=== PATIENT | female | born 1945 | race Hispanic/Latino ===

== ENCOUNTER 2018-06-27 09:33 | Emergency (ER) | payer MEDICARE, OTHER ==
[~2018-06-27] VITALS: Ht 149.9 cm; Wt 56.7 kg
[~2018-06-27 09:33] MED LIST: ESTRACE1 MG PO; LOSARTAN POTASS50 MG PO; SIMVASTATIN40 MG PO; SYNTHROID75 MCG PO; TRIAMCINOLONE A15 G3 TP; VALACYCLOVIR500 MG PO
[2018-06-27 10:50] LABS: BILIRUBIN,URINE NEGATIVE (NEGATIVE); CLARITY,URINE CLEAR (CLEAR); COLOR,URINE YELLOW (YELLOW); KETONES,URINE NEGATIVE (NEGATIVE); LEUKOCYTE ESTERASE ,URINE NEGATIVE (NEGATIVE); NITRITE,URINE POSITIVE (NEGATIVE); PROTEIN,URINE DIPSTICK 1+ (NEGATIVE); URINE UROBILINOGEN 1 mg/dL (0.2 - 1)
[2018-06-27 11:00] LABS: RBC,URINE 0-5 /HPF (0-5); WBC,URINE (MAN) 0-5 /HPF (0-5)
[2018-06-27 11:01] LABS: BACTERIA,URINE MODERATE /HPF; EPITHELIAL CELLS,URINE MODERATE /LPF
--- NOTE | 2018-06-27 12:37 | NUR ---
bladder scan completed after patient went to rest room and voided. result was 0ml after two seperate attempts. Arron [employer]ATOR in room when scan completed
[2018-06-27] MEDS ORDERED: DETROL LA4 MG PO (12:56)
[2018-06-27] MEDS ORDERED: CEFDINIR300 MG PO (12:59)
== END 2018-06-27 13:23 | disposition home or self-care (01) ==
LOC: ER 09:33
DX: R30.0 Dysuria (principal); N30.90 Cystitis, unspecified without hematuria; I10 Essential (primary) hypertension; E07.9 Disorder of thyroid, unspecified; K21.9 Gastro-esophageal reflux disease without esophagitis
CPT/HCPCS: 81001; 99284

== ENCOUNTER 2022-10-25 10:24 | Emergency (ER) | payer MEDICARE ==
[~2022-10-25] VITALS: Ht 149.9 cm; Wt 56.7 kg
[~2022-10-25 10:24] MED LIST changes: +CEFDINIR300 MG PO; +DETROL LA4 MG PO
[2022-10-25 11:29] VITALS: O2SAT 100
[2022-10-25] MEDS ORDERED: SODIUM CHLORIDE 0.9% 500ML 500 ML IV ONE (12:00)
[2022-10-25 12:51] LABS: BASOPHILS % 0.4 % (0.0-1.0); EOSINOPHILS # (AUTO) 0.1 (0.0-0.4); EOSINOPHILS % 1.2 % (0.0-6.0); HEMATOCRIT 41.4 % (34.2-44.1); HEMOGLOBIN 14.1 g/dL (12.0-16.0); LYMPHOCYTES # (AUTO) 3.5 (1.0-3.2); LYMPHOCYTES % 40.5 % (18.0-39.1); MEAN CORPUSCULAR HEMOGLOBIN 31.4 pg (28-32); MEAN CORPUSCULAR HGB CONC 34.1 g/dL (31-35); MEAN CORPUSCULAR VOLUME 92.2 fL (81-99); MONOCYTES # (AUTO) 0.7 (0.2-0.8); MONOCYTES % 7.7 % (4.4-11.3); NEUTROPHILS # (AUTO) 4.3 (2.1-6.9); PLATELET COUNT 337 x10e3/uL (140-360); RED BLOOD COUNT 4.49 x10e6/uL (3.6-5.1); RED CELL DISTRIBUTION WIDTH 12.5 % (11.7-14.4)
[2022-10-25 13:13] LABS: COLOR,URINE YELLOW (YELLOW)
[2022-10-25 13:14] LABS: ALBUMIN 4.2 g/dL (3.5-5.0); ALBUMIN/GLOBULIN RATIO 1.3 (0.8-2.0); ANION GAP 13.5 mmol/L (8-16); CALCIUM 9.5 mg/dL (8.4-10.2); CLARITY,URINE SL CLOUDY (CLEAR); CREATININE, SERUM 0.76 mg/dL (0.57-1.11); MAGNESIUM 2.2 MG/DL (1.3-2.1); POTASSIUM 3.5 mmol/L (3.5-5.1)
[2022-10-25 13:16] LABS: KETONES,URINE NEGATIVE (NEGATIVE); LEUKOCYTE ESTERASE ,URINE SMALL (NEGATIVE); NITRITE,URINE NEGATIVE (NEGATIVE); PROTEIN,URINE DIPSTICK TRACE (NEGATIVE)
[2022-10-25 13:17] LABS: URINE UROBILINOGEN 0.2 mg/dL (0.2 - 1)
[2022-10-25 13:37] LABS: WBC,URINE (MAN) 21-50 /HPF (0-5)
[2022-10-25 13:38] LABS: BACTERIA,URINE MANY /HPF; EPITHELIAL CELLS,URINE FEW /LPF
[2022-10-25] MEDS ORDERED: CEFDINIR300 MG PO (15:47)
== END 2022-10-25 16:54 | disposition home or self-care (01) ==
LOC: ER 10:44
DX: R30.0 Dysuria (principal); N39.0 Urinary tract infection, site not specified; R10.2 Pelvic and perineal pain
CPT/HCPCS: 36415; 74176; 80053; 81001; 83735; 85025; 87086; 99284